=== PATIENT | female | born 1950 | race Caucasian/White ===

== ENCOUNTER → 2018-09-16 | Outpatient (CLI) | payer OTHER | LOC: M.RAD 15:27 | DX: M85.88 Other specified disorders of bone density and structure, other site (principal); E78.5 Hyperlipidemia, unspecified; E03.9 Hypothyroidism, unspecified; F63.3 Trichotillomania; E66.9 Obesity, unspecified; G25.81 Restless legs syndrome; Z68.39 Body mass index [BMI] 39.0-39.9, adult; Z85.3 Personal history of malignant neoplasm of breast; Z90.11 Acquired absence of right breast and nipple; Z81.1 Family history of alcohol abuse and dependence; Z82.49 Family history of ischemic heart disease and other diseases of the circulatory system; Z78.0 Asymptomatic menopausal state ==

== ENCOUNTER → 2018-10-30 | Outpatient (CLI) | payer OTHER | LOC: M.RAD 14:10 | DX: M25.511 Pain in right shoulder (principal) ==